=== PATIENT | male | born 1945 | race Caucasian/White ===

== ENCOUNTER 2018-03-17 08:03 | Outpatient (CLI) | payer OTHER ==
--- NOTE | 2018-03-17 09:16 | Cat Scan Report ---
CT chest without contrast: Right hilar mass. Transverse images were obtained through the chest with coronal and sagittal 2-D reformatted images. No axillary, hilar, or mediastinal adenopathy appreciated. No hilar mass identified. The central airways are patent. The thoracic aorta is normal in size and contour. A small amount of coronary vascular calcification suspected in the main left artery. There are no pulmonary nodules or infiltrates noted. No pleural thickening. Sections carried into the upper abdomen demonstrates multiple hypodense masses involving the right kidney having low attenuation consistent with cysts. Impressions: No chest masses identified.
== END 2018-03-17 08:04 | disposition home or self-care (01) ==
LOC: CT 08:03
PROVIDERS: ATTEND Internal Medicine
DX: R91.8 Other nonspecific abnormal finding of lung field (principal); E78.5 Hyperlipidemia, unspecified; I10 Essential (primary) hypertension; K05.4 Periodontosis; K21.9 Gastro-esophageal reflux disease without esophagitis
CPT/HCPCS: 71250